=== PATIENT | male | born 1965 | race Caucasian/White ===

== ENCOUNTER → 2019-02-01 | Outpatient (CLI) | payer BC ==
--- NOTE | 2019-02-07 10:51 | SLEEPHOME ---
DATE OF PROCEDURE: 02/01/2019 ORDERING PROVIDER: Yadi Celis NP Diagnostic home sleep testing was performed due to concern for the obstructive sleep apnea syndrome. For testing, a nocturnal T3 respiratory monitoring device was used. Continuous record was made of pulse, oxygen saturation, airflow, chest and abdominal strain, and body position. 9 hours and 59 minutes of data were reviewed. There were 7 hours and 56 minutes marked as time in bed. During the interval marked time in bed, there were only 27 respiratory events identified of 10 seconds in duration or greater for an apnea-hypopnea index 3.4. The events were predominantly seen in the supine posture. Baseline pulse rate was 60 beats per minute. Pulse rate ranged 43-88. Baseline saturation 94%. Lowest oxygen saturation 90%. Testing was performed in both the supine and nonsupine positions. IMPRESSION: Borderline diagnostic home sleep testing with some respiratory events. No significant oxygen desaturation. RECOMMENDATIONS: As the events identified were seen in the supine posture, sleep position retraining for avoidance of the supine posture would be reasonable. If sleep symptoms persist, referral for in laboratory nocturnal polysomnography may be more sensitive to identify mild disease.
== END ==
LOC: M SLEEP HO 09:29
PROVIDERS: ATTEND Nurse Practitioner Family
DX: R06.83 Snoring (principal)

== ENCOUNTER → 2020-10-01 | Outpatient (REF) | payer BC | LOC: M LAB REF 16:19 | PROVIDERS: ATTEND Physician Assistant Medical | DX: Z11.59 Encounter for screening for other viral diseases (principal) ==

== ENCOUNTER → 2021-07-02 | Outpatient (REF) | payer BC ==
[2021-07-04 16:13] LABS: Lyme Disease IgG/IgM Antibodie <0.91 ISR (0.00-0.90); Lyme Disease IgM Ab Quantitati <0.80 index (0.00-0.79)
== END ==
LOC: M LAB REF 16:08
PROVIDERS: ATTEND Internal Medicine
DX: M25.50 Pain in unspecified joint (principal)

== ENCOUNTER → 2025-08-19 | Outpatient (CLI) | payer BC | LOC: M SLEEP 20:00 | PROVIDERS: ATTEND Physician Assistant | DX: R06.83 Snoring (principal); I48.0 Paroxysmal atrial fibrillation; G47.33 Obstructive sleep apnea (adult) (pediatric) ==